=== PATIENT | female | born 1960 | race Caucasian/White ===

== ENCOUNTER 2017-04-09 19:59 | Emergency (ER) | payer OTHER ==
[~2017-04-09] VITALS: Ht 167.6 cm; Wt 81.7 kg
[~2017-04-09 19:59] MED LIST: ACCUPRIL PO; ACTOPLUS MET 11 EAC1 PO; ADULT LOW DOSE81 MG PO; AMARYL2 MG PO; ATENOLOL 100MG100 MG PO; ATENOLOL PO; AUGMENTIN 875875 MG PO; COZAAR 25 MG TA25 M1; DARVOCET-N 1001 EACH PO; GLIPIZIDE 10 MG10 MG PO; GLUCOPHAGE500 MG PO; HYDROCHLOROTHIA25 M1 PO; HYDROCHLOROTHIA25 M2 PO; IBUPROFEN 800800 MG PO; NORCO 5-325 TA1 EACH PO; PRAVACHOL40 MG PO; TRAMADOL 50 MG50 MG PO
[2017-04-09] MEDS ORDERED: VICTOZA0.6 MG/0.1 SUBQ (20:34)
[2017-04-09] MEDS ORDERED: HYDROCODONE-AP1 EAC6 PO (23:00)
== END 2017-04-09 23:30 | disposition home or self-care (01) ==
LOC: ER 19:59
DX: S52.121A Displaced fracture of head of right radius, initial encounter for closed fracture (principal); I10 Essential (primary) hypertension; E11.9 Type 2 diabetes mellitus without complications; Z90.89 Acquired absence of other organs; Z88.5 Allergy status to narcotic agent; W01.0XXA Fall on same level from slipping, tripping and stumbling without subsequent striking against object, initial encounter; Y93.89 Activity, other specified; Y92.89 Other specified places as the place of occurrence of the external cause; Y99.8 Other external cause status